=== PATIENT | female | born 1945 | race Caucasian/White ===

== ENCOUNTER 2020-03-31 09:47 | Outpatient (REF) | payer MEDICARE, SELFPAY ==
--- NOTE | 2020-03-31 | MM_ITS ---
EXAMINATION: MM DIAGNOSTIC DIGITAL BREAST TOMOSYNTHESIS, BILATERAL CLINICAL INFORMATION: Due for yearly. Follow-up probable benign calcifications possibly dermal posterior upper left breast limited to MLO view. Chronic history of leukemia since 2012. The lifetime risk of breast cancer based on the Tyrer-Cuzick Model is 3%. COMPARISON: Mammography: 09/23/2019, 02/21/2019, 02/15/2019 (BI-RADS 0) 07/22/2016, 05/26/2015 TECHNIQUE: Digital breast tomosynthesis is performed in both the craniocaudal and mediolateral oblique views along with computer-aided detection (CAD). Synthesized 2D images are generated from the tomosynthesis. Additional views are obtained: Left MLO, magnification left ML x2, left magnification CC x2. FINDINGS: There are scattered areas of fibroglandular density (ACR BI-RADS breast composition Category b). Parenchymal pattern is similar to prior exams. There is no developing density or interval mass or architectural abnormality. Nodule with central benign bulky calcification again noted posterior upper inner left breast. The punctate calcifications for follow-up posterior upper left breast are stable, likely present faintly on remote exam 2015 and possibly dermal. Prominent axillary nodes are consistent with the prior studies and history of leukemia. Results are provided to the patient at time of visit by the technologist. MM/MM tomosynthesis diagnostic BI IMPRESSION: 1. Left calcifications for follow-up are stable from prior diagnostic exams. 2. No significant changes from prior studies. ASSESSMENT: BI-RADS 3: Probably Benign RECOMMENDATION: Diagnostic mammography at time of next annual exam, due in 12 months. This patient's information was entered into a reminder system with a target due date for their next mammogram.
== END 2020-03-31 09:48 | disposition home or self-care (01) ==
LOC: HO.MAMMO 09:47
PROVIDERS: PCP Nurse Practitioner Family; Visit Provider Nurse Practitioner Family
DX: R92.1 Mammographic calcification found on diagnostic imaging of breast (principal); C95.10 Chronic leukemia of unspecified cell type not having achieved remission
CPT/HCPCS: 77062; 77066

== ENCOUNTER 2021-06-08 13:12 | Outpatient (REF) | payer MEDICARE, SELFPAY ==
--- NOTE | ~2021-06-08 | MM_ITS ---
EXAMINATION: MM DIAGNOSTIC DIGITAL BREAST TOMOSYNTHESIS, BILATERAL CLINICAL INFORMATION: Due for yearly. Also follow-up probable benign tightly grouped calcifications posterior upper left breast on MLO view, questionably dermal. Chronic history leukemia since 2012. The lifetime risk of breast cancer based on the Tyrer-Cuzick Model is 2%. COMPARISON: Mammography: 03/31/2020, 09/23/2019, 02/21/2019, 02/15/2019 (BI-RADS 0), 07/22/2016, 05/26/2015 TECHNIQUE: Digital breast tomosynthesis is performed in both the craniocaudal and mediolateral oblique views along with computer-aided detection (CAD). Synthesized 2D images are generated from the tomosynthesis. Additional views are obtained: Left MLO, exaggerated left CC, magnification left CC, magnification left ML, magnification left MLO x2. FINDINGS: There are scattered areas of fibroglandular density (ACR BI-RADS breast composition Category b). Scattered parenchymal asymmetries are stable. There is no interval mass or developing density or architectural abnormality. There is a stable nodule with benign central bulky calcification posterior 11:00 left breast likely degenerating fibroadenoma. Axillary adenopathy is a chronic finding and consistent with the clinical history. The tightly grouped calcifications on MLO magnification view are stable from prior diagnostic exams. There are now considered to be benign. Results are provided to the patient at time of visit by the technologist. MM/MM tomosynthesis diagnostic BI IMPRESSION: -No significant changes from prior studies. -Calcifications posterior upper left breast on MLO view is stable from prior diagnostic exams and now considered to be benign. ASSESSMENT: BI-RADS 2: Benign RECOMMENDATION: Routine annual mammography screening. This patient's information was entered into a reminder system with a target due date for their next mammogram.
== END 2021-06-08 13:13 | disposition home or self-care (01) ==
LOC: HO.MAMMO 13:12
PROVIDERS: Visit Provider Nurse Practitioner Family
DX: R92.1 Mammographic calcification found on diagnostic imaging of breast (principal)
CPT/HCPCS: 77062; 77066

== ENCOUNTER 2022-06-14 11:05 | Outpatient (REF) | payer MEDICARE, SELFPAY ==
--- NOTE | ~2022-06-14 | MM_ITS ---
EXAMINATION: MM SCREENING DIGITAL BREAST TOMOSYNTHESIS, BILATERAL CLINICAL INFORMATION: Screening. Asymptomatic. History chronic leukemia since 2012. The lifetime risk of breast cancer based on the Tyrer-Cuzick Model is 2%. COMPARISON: Multiple prior studies, most recent 06/08/2021. TECHNIQUE: Digital breast tomosynthesis is performed in both the craniocaudal and mediolateral oblique views along with computer-aided detection (CAD). Synthesized 2D images are generated from the tomosynthesis. Additional left MLO view is provided. FINDINGS: There are scattered areas of fibroglandular density (ACR BI-RADS breast composition Category b). Parenchymal pattern is similar to prior studies. No developing density, significant mass, architectural abnormality. Left breast has chronic nodule with central bulky calcification posterior 11:00. There is left axillary adenopathy as noted on prior exams consistent with the systemic disease. There is no coarsening of the stromal markings. Skin contours are smooth. No significant changes. MM/MM tomosynthesis screening BI IMPRESSION: No significant changes from prior exams. ASSESSMENT: BI-RADS 2: Benign RECOMMENDATION: Routine annual mammography screening. This patient's information was entered into a reminder system with a target due date for their next mammogram.
== END 2022-06-14 11:06 | disposition home or self-care (01) ==
LOC: HO.MAMMO 11:05
PROVIDERS: PCP Internal Medicine; Visit Provider Nurse Practitioner Family
DX: Z12.31 Encounter for screening mammogram for malignant neoplasm of breast (principal)
CPT/HCPCS: 77063; 77067

== ENCOUNTER 2023-06-20 10:10 | Outpatient (REF) | payer MEDICARE, SELFPAY ==
--- NOTE | ~2023-06-20 | MM_ITS ---
EXAMINATION: MM SCREENING DIGITAL BREAST TOMOSYNTHESIS, BILATERAL CLINICAL INFORMATION: Screening. Asymptomatic. Patient has a history of chronic leukemia. COMPARISON: Mammography: This study is compared with prior exams dating back to 2019. TECHNIQUE: Digital breast tomosynthesis is performed in both the craniocaudal and mediolateral oblique views along with computer-aided detection (CAD). Synthesized 2D images are generated from the tomosynthesis. FINDINGS: There are scattered areas of fibroglandular density (ACR BI-RADS breast composition Category b). There are no significant masses, abnormal calcifications, or other abnormalities. Few, benign calcifications are present in the right breast. MM/MM tomosynthesis screening BI IMPRESSION: No mammographic evidence of malignancy. ASSESSMENT: BI-RADS BI-RADS 2 - Benign Findings RECOMMENDATION: Routine annual mammography screening. 1 year F/U This examination should not preclude the clinical evaluation of a suspicious palpable abnormality. This patient's information was entered into a reminder system with a target due date for their next mammogram.
== END 2023-06-20 10:11 | disposition home or self-care (01) ==
LOC: HO.MAMMO 10:10
PROVIDERS: PCP Nurse Practitioner Family; Visit Provider Nurse Practitioner Family
DX: Z12.31 Encounter for screening mammogram for malignant neoplasm of breast (principal)
CPT/HCPCS: 77063; 77067

== ENCOUNTER → 2023-06-20 10:30 | Outpatient (BNV) | payer MEDICARE, SELFPAY | PROVIDERS: PCP Nurse Practitioner Family; Visit Provider Radiology Diagnostic Radiology | DX: Z12.31 Encounter for screening mammogram for malignant neoplasm of breast (principal) | CPT/HCPCS: 77063; 77067 ==

== ENCOUNTER 2024-06-25 10:11 | Outpatient (REF) | payer MEDICARE, SELFPAY ==
--- OUTSIDE RECORDS SUMMARY | 2024-06-25 12:03 | XMS_ITS | Clinical Summary ---
Author Organization [facility] Address [address] [place] [id number] Care Team Providers Care Gas Main And Line Fitter Name Role Phone Margarita Jones NP Primary Care Provider [phone] Allergies Active Allergy Reactions Criticality Noted Date Comments Codeine 12/29/2016 Medications Medication Sig Dispensed Refills Start Date End Date Status hydrochlorothiazide (HYDRODIURIL) tablet 25 mg Take 1 tablet (25 mg total) by mouth daily. 0 Active sertraline (ZOLOFT) 50 MG tablet Take 1 tablet (50 mg total) by mouth daily. 0 Active cholecalciferol (VITAMIN D3) 1000 UNITS tablet Take 1 tablet (1,000 Units total) by mouth daily. 0 Active amLODIPine (NORVASC) tablet 5 mg Take 1 tablet (5 mg total) by mouth daily. 0 Active enalapril (VASOTEC) 10 MG tablet Take 2 tablets (20 mg total) by mouth daily. 0 Active levothyroxine (SYNTHROID, LEVOXYL) tablet 150 mcg Take 1 tablet (150 mcg total) by mouth every morning on an empty stomach. 0 Active MELATONIN PO Take by mouth. 0 Active atorvastatin (LIPITOR) tablet 10 mg Take 1 tablet (10 mg total) by mouth every evening. 0 Active metFORMIN (GLUCOPHAGE-XR) 750 MG 24 hr tablet Take 1 tablet (750 mg total) by mouth every morning with breakfast. 0 Active traZODone (DESYREL) 50 MG tablet Take 1 tablet (50 mg total) by mouth every night at bedtime. 0 Active mirtazapine (REMERON) 7.5 MG tablet Take 1 tablet (7.5 mg total) by mouth every night at bedtime. 0 Active Semaglutide (OZEMPIC, 0.25 OR 0.5 MG/DOSE, SC) Inject under the skin. 0 Active Active Problems Problem Noted Date Diagnosed Date Osteoarthritis 03/08/2019 Overview: Multiple joints. Left TKR and THR. Acquired hypothyroidism 03/08/2019 Diabetes mellitus type 2, noninsulin dependent 1 05/09/2018 Hypertension 03/08/2019 Anxiety about health 03/08/2019 Resolved Problems Problem Noted Date Diagnosed Date Resolved Date CLL (chronic lymphocytic leukemia) 12/30/2016 11/21/2021 Cancer Staging:Clinical stage from 07/27/2012:Modified Lewis Stage 0(Modified Lewis risk: Low, Binet: Stage A, Lymphocytosis: Present, Adenopathy: Absent, Organomegaly: Absent, Anemia: Absent, Thrombocytopenia: Absent) - Signed by Aleksey Teran MD on 03/08/2019 Social History Tobacco Use Types Packs/Day Years Used Date Smoking Tobacco: Former Smokeless Tobacco: Never Alcohol Use Standard Drinks/Week Comments No 0 (1 standard drink = 0.6 oz pur e alcohol) Sex and Gender Information Value Date Recorded Sex Assigned at Not on file Gender Identity Not on file Sexual Orientation Not on file Job Start Date Occupation Industry Not on file Not on file Not on file Last Filed Vital Signs Vital Sign Reading Time Taken Comments Blood Pressure 118/45 01/03/2024 11:14 AM EDT Pulse 63 01/03/2024 11:14 AM EDT Temperature 37.2 ??C (99 ??F) 01/03/2024 11:14 AM EDT Respiratory Rate - - Oxygen Saturation 98% 01/03/2024 11:14 AM EDT Inhaled Oxygen Concentration - - Weight 69.9 kg (154 lb) 01/03/2024 11:14 AM EDT Height 162.6 cm (5' 4 ) 10/05/2023 11:10 AM EDT Body Mass Index 26.43 10/05/2023 11:10 AM EDT Plan of Treatment Health Maintenance Due Date Last Done Comments Depression Screening 1959 BMI Counseling 1965 Preventative Health Evaluation 1965 Fall Risk Assessment 02/29/2012 Osteoporosis Screening (DEXA Scan) 02/29/2012 COVID-19 Vaccine (2 - Moderna risk series) 02/08/2023 01/11/2023 Influenza Vaccine (#1) 2023 3, 12/20/2022, 01/19/2022, Additional history exists DTap / Tdap / Td (2 - Td or Tdap) 01/01/2029 01/01/2019 Hepatitis C Screening Completed 01/01/2019 Pneumococcal Vaccine Completed 04/10/2019, 06/18/19 Shingrix-Zoster Vaccine Completed 08/27/19, 06/17/2021, 01/31/2018, Additional history exists RSV Adult > 60+ Yrs or Completed 04/28/2023 Hepatitis B Vaccines Aged Out No long er eligible based on patient's age to complete this topic RSV Ped < 20 months Aged Out No longe r eligible based on patient's age to complete this topic Care Teams Gas Main And Line Fitter Relationship Specialty Start Date End Date Margarita Jones AUTOMOTIVE [employer]S COORDINATOR [address] [facility] [address] [place] [address] PCP - General Family Medicine 07/06/23
--- OUTSIDE RECORDS SUMMARY | 2024-06-25 12:03 | XMS_ITS | Clinical Summary ---
Author Organization [facility] Address [address] [place] [address] Care Team Providers Care Coin Teller Name Role Phone Margarita Jones NP Primary Care Provider [phone] Allergies Active Allergy Reactions Criticality Noted Date Comments Codeine 12/29/2016 Medications amLODIPine (NORVASC) 5 mg tablet Take 1 tablet (5 mg total) by mouth 1 (one) time each day. Active hydroCHLOROthia zide (HYDRODIURIL) 25 mg tablet Take 1 tablet (25 mg total) by mouth 1 (one) time each day. Active levothyroxine (SYNTHROID, LEVOTHROID) 150 mcg tablet Take 1 tablet (150 mcg total) by mouth 1 (one) time each day before breakfast. Active enalapril (VASOTEC) 10 mg tablet Take 2 tablets (20 mg total) by mouth 1 (one) time each day. Active metFORMIN XR (GLUCOPHAGE-XR) 750 mg 24 hr tablet Take 1 tablet (750 mg total) by mouth every morning with breakfast. Active atorvastatin (LIPITOR) 10 mg tablet Take 1 tablet (10 mg total) by mouth at bedtime. Active sertraline (ZOLOFT) 50 mg tablet Take 1 tablet (50 mg total) by mouth 1 (one) time each day. Active cholecalciferol (VITAMIN D-3) 25 mcg (1,000 unit) tablet Take 1 tablet (1,000 Units total) by mouth 1 (one) time each day. Active LORazepam (ATIVAN) 0.5 mg tablet Take 0.5 mg by mouth every 6 hours as needed. Active zolpidem (AMBIEN) 10 mg tablet Take by mouth at bedtime as needed. Active amoxicillin (AMOXIL) 500 mg capsule Take 1 capsule (500 mg total) by mouth 3 (three) times a day. Active docusate sodium (COLACE) 100 mg capsule Take 1 capsule (100 mg total) by mouth 2 (two) times a day. Active Active Problems Problem Noted Date Diagnosed Date Acute low back pain with sciatica 12/02/2021 Overview (02/23/2024): Last Assessment & Plan: Patient describes right low back and buttock pain, some pain radiating down the right lateral leg. She states the right lateral leg pain she had prior to her fall 2 weeks ago, but after her fall 2 weeks ago she started having increased right low back and buttock pain, around her SI joint. She has history of a right-sided injection, it sounds like SI joint injection, 5 weeks ago that helped her pain at that time until her fall. She is due for right knee replacement surgery in the near future, her right knee collapsed and buckled 2 weeks ago that led to her fall. She notes pain in the right low back/SI joint with certain movements. She rates her nighttime pain in the right low back 8/10 since her fall, less severe in the daytime, average pain 5/10. She does not think she can tolerate another cortisone injection, given her CLL and diabetes. Her last A1c a couple months ago was 9, she goes back in January for recheck. She has been using heat, warm baths, Aleve, rubs cream on the area. Patient had lumbar x-rays prior to coming in today, I did not note any fractures, instability. Official report pending. Ms. Pandya seems to be having increased right SI joint pain, right low back pain. She was requesting trying a muscle relaxer like Flexeril, which she has had in the past without side effect, to see if that would help her at nighttime with her back pain. I explained I can give her small amount, if she needed refills she would have to call her primary care physician. I will call her with the results of the official x- ray report. We talked about trying aquatic physical therapy, which she agreed to. Prescription provided. If she is not seeing improvement in time, she will likely need lumbar spine MRI. Acquired hypothyroidism 03/08/2019 Anxiety about health 03/08/2019 Diabetes mellitus type 2, no ninsulin dependent ([facility] V24, [facility] V28) 03/08/2019 Hypertension 03/08/2019 Osteoarthrosis 03/08/2019 Overview (02/23/2024): Multiple joints. Left TKR and THR. Immunizations Name Administration Dates Next Due Influenza trivalent, 0.5mL ( Fluzone High-dose) 65yo and older 01/01/2019,01/05/2018,03/31/2017,11/15,12/02/2014 Influenza trivalent, with pr eservative (Fluzone; Afluria) 6mo and older 12/14/2020,12/18/2019 Pneumococcal polysaccharide 23 valent (Pneumovax 23) 2yo and older 04/10/2019 Tdap Tetanus diptheria acell ular pertussis (Boostrix; Adacel) 7yo and older 01/01/2019 Zoster recombinant (Shingrix ) 19yo and older 08/26/2021,06/17/2021,01/31/2018 Surgical History Surgery Date Site/Laterality Comments OTHER SURGICAL HISTORY 07/27/2020 PROCEDURE: MO MEJIA FACETECTOMY & FORAMOTOMY 1 VRT SGM LUMBAR; COMMENT: L3-4 decompression, Dr. Weaver OTHER SURGICAL HISTORY 1972 PROCEDURE: MO LAMNOTMY INCL W/DCMPRSN NRV ROOT 1 INTRSPC LUMBR; COMMENT: Lumbar discectomy CHOLECYSTECTOMY PROCEDURE: HISTORICAL CHOLECYSTECTOMY HYSTERECTOMY PROCEDURE: HISTORICAL HYSTERECTOMY HERNIA REPAIR PROCEDURE: HISTORICAL HERNIA REPAIR/ING HIP ARTHROPLASTY 2017 Left PROCEDURE: HISTORICAL HIP REPLACEMENT TOTAL KNEE ARTHROPLASTY 2012 Left PROCEDURE: MO ARTHRP KNE CONDYLE&PLATU MEDIAL&LAT COMPARTMENTS HYSTERECTOMY PROCEDURE:HYSTERECTOMY TOTAL KNEE ARTHROPLASTY PROCEDURE:TOTAL KNEE ARTHROPLASTY CERVICAL DISCECTOMY PROCEDURE:CERVICAL DISCECTOMY TOTAL HIP ARTHROPLASTY PROCEDURE:TOTAL HIP ARTHROPLASTY Medical History Medical History Date Comments CLL (chronic lymphocytic robyn kemia) ([facility] V24, [facility] V28) DX:CLL (chronic lymphocytic leukemia) (HCC) HTN (hypertension) DX:HTN (hyper tension) Type 2 diabetes mellitus wit hout complications ([facility] V24, [facility] V28) DX:Type 2 diabetes mellitus without complications (HCC) Hypothyroid DX:Hypothyroid Diabetes mellitus ([facility] V 24, [facility] V28) DX:Diabetes mellitus (HCC) Hypertension DX:Hypertension Disease of thyroid gland DX:Dise ase of thyroid gland Osteoarthritis DX:Osteoarthriti s CLL (chronic lymphocytic robyn kemia) ([facility] V24, [facility] V28) 12/30/2016 DX:CLL (chronic lymphocytic leukemia) ([facility]) Social History Tobacco Use Types Packs/Day Years Used Date Smoking Tobacco: Former Smokeless Tobacco: Never Alcohol Use Standard Drinks/Week Comments No 0 (1 standard drink = 0.6 oz pur e alcohol) Comments Unknown Sex and Gender Information Value Date Recorded Sex Assigned at Not on file Legal Sex Female 10:06 AM EST Gender Identity Not on file Sexual Orientation Not on file Obstetrics History Last Filed Vital Signs Vital Sign Reading Time Taken Comments Blood Pressure 127/56 10/05/2023 11:10 AM EDT Sitting Left arm Pulse 75 10/05/2023 11:10 AM EDT Temperature - - Respiratory Rate - - Oxygen Saturation - - Inhaled Oxygen Concentration - - Weight 69.9 kg (154 lb) 01/03/2024 11:1 4 AM EDT Height 162.6 cm (5' 4 ) 10/05/2023 11:1 0 AM EDT Body Mass Index 26.43 10/05/2023 11:10 AM EDT Plan of Treatment Upcoming Encounters Date Type Department Care Team (Late st Contact Info) Description 07/03/2024 11:00 AM EDT Office Visit [facility] Hematology Oncology [address] [place] [address] Musa Martins MD [address] [place] [id number] Health Maintenance Due Date Last Done Comments Diabetes: Annual GFR (Glomerular Filtration Rate) 1947 Diabetes: Annual Foot Exam 1957 Diabetes: Annual Retina Eye Exam 1957 Pneumococcal Vaccine: 50+ Years (2 of 2 - PCV) 04/10/2020 04/10/2019 Cholesterol Screening (Lipid Panel) 02/18/2022 Depression Screening 02/18/2022 Falls Risk Assessment 02/18/2022 Hepatitis C Screening 02/18/2022 Medicare Annual Wellness Visit 02/18/2022 Osteoporosis Screening (Bone Density Screening) 02/18/2022 Social Influencers of Health Screening 02/18/2022 Diabetes: Annual Urine Albumin-Creatinine Ratio (uACR) 02/25/2022 Diabetes: Blood Sugar Control Test (HGBA1C) 02/25/2022 Hypertension/CHF/CAD Annual BMP Blood Test 02/25/2022 RSV Immunization Adult Patients (1 - 1-dose 75+ series) 2022 COVID-19 Vaccine ( season) 2023 07/21/2021, 01/15/2021, 06/07/2020, Additional history exists Influenza Vaccine (Season Ended) 2024 12/14/2020, 12/18/2019, 01/01/2019, Additional history exists DTaP,Tdap,and Td Vaccines (2 - Td or Tdap) 01/01/2029 01/01/2019 Zoster Vaccines Completed 08/26/2021, 040 09/2021, 01/31/2018 HIB Vaccines Aged Out No longer eligi ble based on patient's age to complete this topic HPV Vaccines Aged Out No longer eligi ble based on patient's age to complete this topic Hepatitis A Vaccines Aged Out No long er eligible based on patient's age to complete this topic Hepatitis B Vaccines Aged Out No long er eligible based on patient's age to complete this topic IPV Vaccines Aged Out No longer eligi ble based on patient's age to complete this topic MMR Vaccines Aged Out No longer eligi ble based on patient's age to complete this topic Meningococcal ACWY Vaccine Aged Out N o longer eligible based on patient's age to complete this topic Meningococcal B Vaccine Aged Out No l onger eligible based on patient's age to complete this topic RSV Immunization Patients Under 20 months Aged Out No longer eligible based on patient's age to complete this topic Varicella Vaccines Aged Out No longer eligible based on patient's age to complete this topic Insurance [facility] BLUE CROSS - [place] MEDICARE ADVANTAGE Care Teams Coin Teller Relationship Specialty Start Date End Date Margarita Jones NP [facility] [address] [facility] [place] [id number] PCP - General 07/06/23
== END 2024-06-25 10:12 | disposition home or self-care (01) ==
LOC: HO.MAMMO 10:11
PROVIDERS: PCP Nurse Practitioner Family; Visit Provider Nurse Practitioner Family
DX: Z12.31 Encounter for screening mammogram for malignant neoplasm of breast (principal)
CPT/HCPCS: 77063; 77067

== ENCOUNTER → 2024-06-25 10:30 | Outpatient (BNV) | payer MEDICARE, SELFPAY | PROVIDERS: PCP Nurse Practitioner Family; Visit Provider Internal Medicine | DX: Z12.31 Encounter for screening mammogram for malignant neoplasm of breast (principal) | CPT/HCPCS: 77063; 77067 ==